=== PATIENT | male | born 1990 | race Caucasian/White ===

== ENCOUNTER 2023-08-05 14:02 | Outpatient (AMB) | payer BC, SELFPAY ==
[2023-08-05 14:30] VITALS: BP 127/58; PULSE 64; RESP 16; O2SAT 98; BMI 31.8
--- NOTE | 2023-08-05 14:30 | MHC.OFFVIS ---
Vital Signs 08/05/23 14:30 Height 5 ft 6 in Weight 197 lb BMI 31.8 BP 127/58 L Blood Pressure Location Lt brachial Position Sitting Respiration 16 Pulse 64 Pulse Source Pulse Oximeter Pulse Oximetry (%) 98 Oxygen Delivery Method Room Air Intake Visit Reasons: Back/Shoulder pain,numbness Allergies Penicillins Allergy (Unknown, Verified 08/03/23 09:39) Unknown HPI Comments Details: Papo is a very pleasant 33-year-old male who presents the office today for evaluation management of his chronic back pain. Patient endorses pain across the lower back with radiation down both legs to the feet. He also reports pain across his shoulders, mid line cervical neck pain with radiation down both arms. Endorses numbness and tingling of both hands and feet. Patient states the symptoms started after he was injured in 2011 while serving in the . Patient completed physical therapy about 4 months ago. No improvement of pain. He has done acupuncture and dry needling without improvement of his symptoms. Nonsteroidal anti-inflammatory medication, Tylenol and topical medications not effective in relieving his pain. Patient did have an MRI years ago, he was then evaluated by a neurosurgeon but deemed not surgical candidate at that time. Denies red flag symptoms including new loss of bowel, bladder or saddle anesthesia. Pain today is rated as a 5/10, constant. In terms of muscle damage condition is described as aching, spasming, stabbing, sharp, shooting, dull, numb, throbbing, tingling, pins and needles. Pain is negatively impacting patient's enjoyment of life, general activity, mood, normal work, recreational activity, relationship but people, sleeping and driving. 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 He could not tolerate sitting in a car during shifts for lengthy periods of time or wearing his duty belt. Patient also complains of headaches. He has a pending neurology appointment in 2 weeks. He has tried sumatriptan and Nurtec with minimal improvement. States he gets severe headaches 4 to 5 times a month that require him to lay in a dark room with the lights off. He endorses near daily tolerable headaches. He is not on any preventative medications for migraines. He does have a history of sleep apnea, uses CPAP at night but also has a history of PTSD and struggles with tolerating the CPAP device on his face. Patient denies alcohol or tobacco use. Endorses THC use at bedtime Denies use of anticoagulation. Denies implantable devices, pacemaker, defibrillator. [facility] Medical History (Updated 08/05/23 @ 16:52 by Judy Wang, CCU NURSE, [employer] REPA[employer]ER SUPERVISOR) Chronic headache MARCIE (obstructive sleep apnea) Kidney stone Insomnia Back pain Anxiety Review of Systems Const All systems reviewed & are unremarkable except as noted in HPI and below Physical Exam Vital Signs: Last Vital Signs Pulse 64 08/05/23 14:30 Resp 16 08/05/23 14:30 BP 127/58 L 08/05/23 14:30 Pulse Ox 98 08/05/23 14:30 Oxygen Delivery Method Room Air 08/05/23 14:30 BMI result Body Mass Index 31.8 General: awake, alert, oriented. Answers questions appropriately. Fully engaged in examination. Skin: warm, dry, intact HEENT: Normocephalic. Hearing intact. Cardiac: External chest normal in appearance. Respiratory: No cough, audible wheezing or stridor. Abdomen: without gross distension. Neurological: Oriented to person, place, time and situation. Thought process intact. No gait abnormalities appreciated. Psychiatric: Appropriate mood and affect. Good judgment and insight. Lumbar exam: Able to stand on bilateral tiptoes and bilateral heels. Able to transition from sit to stand unassisted. Ambulates with bilaterally normal heel strike and toe off Tender to palpation over bilateral lumbar musculature, midline cervical vertebrae, cervical paraspinal muscles, upper and middle trapezius Nontender to palpation over PSIS Cervical range of motion limited, pain with right and left lateral flexion and rotation. Elvey tension positive bilaterally Bilateral upper extremity strength 5/5 Bilateral lower extremity strength 5/5 DTR: intact and symmetric Negative footdrop, negative clonus Straight leg raises with dorsiflexion positive the right Facet loading positive bilaterally MARITO positive bilaterally Assessment & Plan Assessment & Plan (1) Paresthesia: Comment: bilateral hands, bilateral feet Code(s): R20.2 - Paresthesia of skin Category: Medical (2) Lumbar radiculopathy: Code(s): M54.16 - Radiculopathy, lumbar region Category: Medical (3) Chronic headache: Code(s): R51.9 - Headache, unspecified; G89.29 - Other chronic pain Category: Medical (4) Myofascial muscle pain: Comment: UPPER AND LOWER BACK Code(s): M79.18 - Myalgia, other site Category: Medical (5) Cervical radiculopathy: Code(s): M54.12 - Radiculopathy, cervical region Category: Medical Plan Papo is a very pleasant 33-year-old male who presented to the office today for evaluation management of his chronic neck and lower back pain. EMG ordered for evaluation of his reported bilateral hand and bilateral lower extremity neuropathy/paresthesia. Patient has exhausted conservative therapy including PT, acupuncture, dry needling, nonsteroidal anti-inflammatory medications, Tylenol and topical medications all without improvement of his symptoms. Discussed options for treatment including medication management, diagnostic testing, steroid injections, peripheral nerve stimulation, radiofrequency ablation and more permanent neuromodulation. Patient would like to start with medications while waiting for EMG testing and results. Tizanidine 2 mg p.o. t.i.d.. Patient advised on cautions for use. May cause drowsiness. Do not take with alcohol or other FABRICATION LEAD suppressants. Amitriptyline 10 mg p.o. q.h.s. for 2 weeks. Then may increase to 20 mg p.o. q.h.s. All questions and concerns are answered and patient agrees with the plan. Follow-up after EMG, sooner if needed. Orders: Orders NE electromyogram (EMG) Today R20.2 - Paresthesia of skin Medications: New amitriptyline one tablet daily at bedtime for first 2 weeks, then may increase to two tablets at bedtime. 20 mg (2 x 10 mg) PO BEDTIME 60 tabs 1RF tizanidine No driving while taking this medication. May cause drowsiness. Do not take with alcohol or other FABRICATION LEAD Depressants. 2 mg PO TID PRN 90 tabs 0RF muscle spasticity Coding Level of Care Code New Pt Level 4 (44696) Diagnoses Paresthesia R20.2 Lumbar radiculopathy M54.16 Chronic headache R51.9; G89.29 Myofascial muscle pain M79.18 Cervical radiculopathy M54.12
== END 2023-08-05 15:01 | disposition home or self-care (01) ==
PROVIDERS: PCP Physician Assistant Medical; Visit Provider Registered Nurse Emergency
DX: R20.2 Paresthesia of skin (principal); M54.16 Radiculopathy, lumbar region; R51.9 Headache, unspecified; G89.29 Other chronic pain; M79.18 Myalgia, other site; M54.12 Radiculopathy, cervical region
CPT/HCPCS: 99204

== ENCOUNTER → 2023-08-05 14:02 | Outpatient (BNVA) | payer BC, SELFPAY | PROVIDERS: PCP Physician Assistant Medical; Visit Provider Registered Nurse Emergency ==

== ENCOUNTER 2023-09-09 14:29 | Outpatient (REF) | payer BC, SELFPAY ==
--- NOTE | 2023-09-09 14:33 | EMG_ITS ---
Chief complaint: Lateral neck/trapezius pain radiating down to both upper extremities, with sensation of numbness/tingling and weakness. Left worse than right. Milder symptoms in lower extremities. Reason for referral: Evaluate for radiculopathy Referred by: Judy Wang NP Procedure done: Bilateral upper and lower extremity NCS/EMG Precautions and/or limitations: None The limb temperature was monitored continuously and remained between 32-36 degrees C during the performance of the NCS. Nerve Conduction Studies Anti Sensory Summary Table ?Stim Site NR Onset (ms) Norm Onset (ms) Peak (ms) Norm Peak (ms) O-P Amp (?V) Norm O-P Amp Site1 Site2 Delta-0 (ms) Dist (cm) Anders (m/s) Norm Anders (m/s) Left Median Anti Sensory (2nd Digit) Wrist ? 2.7 3.4 <3.6 61.0 >10 Wrist 2nd Digit 2.7 14.0 52 Right Median Anti Sensory (2nd Digit) Wrist ? 2.6 3.3 <3.6 37.5 >10 Wrist 2nd Digit 2.6 14.0 54 Right Radial Anti Sensory (Thumb) Forearm ? 1.5 2.0 <3.1 30.7 Forearm Thumb 1.5 0.0 Left Sural Anti Sensory (Lat Mall) Calf ? 2.6 3.2 <4.0 25.3 >5.0 Calf Lat Mall 2.6 14.0 54 Right Sural Anti Sensory (Lat Mall) Calf ? 2.7 3.3 <4.0 8.2 >5.0 Calf Lat Mall 2.7 14.0 52 Left Ulnar Anti Sensory (5th Digit) Wrist ? 2.0 2.9 <3.7 53.6 >15.0 Wrist 5th Digit 2.0 14.0 70 Right Ulnar Anti Sensory (5th Digit) Wrist ? 2.2 2.8 <3.7 18.8 >15.0 Wrist 5th Digit 2.2 14.0 64 Motor Summary Table ?Stim Site NR Onset (ms) Norm Onset (ms) O-P Amp (mV) Norm O-P Amp iAmp (mV) Amp (1st) (%) Site1 Site2 Delta-0 (ms) Dist (cm) Anders (m/s) Norm Anders (m/s) Left Median Motor (Abd Poll Brev) Wrist ? 4.5 <3.9 8.8 >4.5 10.0 100.0 Elbow Wrist 3.7 20.0 54 >45 Elbow ? 8.2 8.3 9.5 94.3 Right Median Motor (Abd Poll Brev) Wrist ? 3.9 <3.9 11.1 >4.5 12.9 100.0 Elbow Wrist 3.8 20.0 53 >45 Elbow ? 7.7 10.6 12.4 95.5 Right Peroneal Motor (Ext Dig Brev) Ankle ? 3.8 <4.0 5.5 >2.5 6.6 100.0 Ankle Ext Dig Brev 3.8 0.0 B Fib ? 10.0 5.4 6.1 98.2 B Fib Ankle 6.2 30.0 48 >40 Poplt ? 10.9 5.0 5.7 90.9 Poplt B Fib 0.9 5.0 56 >40 Left Tibial Motor (Abd Hamilton Brev) Ankle ? 4.5 <5 10.4 >2.5 14.9 100.0 Ankle Abd Hamilton Brev 4.5 0.0 Knee ? 11.9 12.8 17.3 123.1 Knee Ankle 7.4 36.0 49 >40 Right Tibial Motor (Abd Hamilton Brev) Ankle ? 4.1 <5 11.9 >2.5 16.7 100.0 Ankle Abd Hamilton Brev 4.1 0.0 Knee ? 11.7 9.4 13.3 79.0 Knee Ankle 7.6 39.0 51 >40 Left Ulnar Motor (Abd Dig Minimi) Wrist ? 2.6 <3.0 7.0 >5 9.3 100.0 B Elbow Wrist 3.2 22.0 69 >45 B Elbow ? 5.8 7.3 9.2 104.3 A Elbow B Elbow 1.7 10.0 59 >45 A Elbow ? 7.5 8.0 10.2 114.3 Right Ulnar Motor (Abd Dig Minimi) Wrist ? 2.7 <3.0 7.2 >5 8.8 100.0 B Elbow Wrist 3.4 20.0 59 >45 B Elbow ? 6.1 6.8 8.5 94.4 A Elbow B Elbow 1.2 10.0 83 >45 A Elbow ? 7.3 6.8 8.7 94.4 EMG ?Side Muscle Nerve Root Ins Act Fibs Psw Amp Dur Poly Recrt Int Pat Comment Right 1stDorInt Ulnar C8-T1 Nml Nml Nml Nml Nml 0 Nml Complete Right FlexCarRad Median C6-7 Nml Nml Nml Nml Nml 0 Nml Complete Right Biceps Musculocut C5-6 Nml Nml Nml Nml Nml 0 Nml Complete Right Triceps Radial C6-7-8 Nml Nml Nml Nml Nml 0 Nml Complete Right Deltoid Axillary C5-6 Nml Nml Nml Nml Nml 0 Nml Complete Left 1stDorInt Ulnar C8-T1 Nml Nml Nml Nml Nml 0 Nml Complete Left FlexCarRad Median C6-7 Nml Nml Nml Nml Nml 0 Nml Complete Left Biceps Musculocut C5-6 Nml Nml Nml Nml Nml 0 Nml Complete Left Triceps Radial C6-7-8 Nml Nml Nml Incr Incr 0 Nml Complete Left Deltoid Axillary C5-6 Nml Nml Nml Nml Nml 0 Nml Complete Right AbdHallucis MedPlantar S1-2 Nml Nml Nml Nml Nml 0 Nml Complete Right AntTibialis Dp Br Peron L4-5 Nml Nml Nml Nml Nml 0 Nml Complete Right PostTibialis Tibial L5, S1 Nml Nml Nml Nml Nml 0 Nml Complete Right MedGastroc Tibial S1-2 Nml Nml Nml Nml Nml 0 Nml Complete Right VastusMed Femoral L2-4 Nml Nml Nml Nml Nml 0 Nml Complete Left AbdHallucis MedPlantar S1-2 Nml Nml Nml Nml Nml 0 Nml Complete Left AntTibialis Dp Br Peron L4-5 Nml Nml Nml Nml Nml 0 Nml Complete Left PostTibialis Tibial L5, S1 Nml Nml Nml Nml Nml 0 Nml Complete Left MedGastroc Tibial S1-2 Nml Nml Nml Nml Nml 0 Nml Complete Left VastusMed Femoral L2-4 Nml Nml Nml Nml Nml 0 Nml Complete Paraspinal EMG ?Side Muscle Nerve Root Ins Act Fibs Psw Comment Right Cervical Upper Rami Nml Nml Nml Right Cervical Mid Rami Nml Nml Nml Right Cervical Lower Rami Nml Nml Nml Left Cervical Upper Rami Nml Nml Nml Left Cervical Mid Rami Nml Nml Nml Left Cervical Lower Rami Incr 1+ 1+ FINDINGS: Right median motor nerve showed prolonged distal latency, normal amplitude and normal conduction velocity. All other nerves tested were within normal. Concentric needle EMG was performed in selected muscles of the bilateral upper and lower extremities, cervical paraspinals. Study revealed signs of electric abnormalities as shown in the table above. Left triceps showed increased duration and amplitude. Left lower cervical paraspinals showed increased insertional activity, PSWs and fibrillations. IMPRESSION: 1. This is an abnormal study. 2. There is electrodiagnostic evidence for chronic left cervical radiculopathy, possibly affecting C7/C8 roots 3. There is no electrodiagnostic evidence for median neuropathy, ulnar neuropathy, brachial plexopathy, peroneal neuropathy, tibial neuropathy. lumbosacral plexopathy, lumbar radiculopathy, or peripheral neuropathy. Thank you for your kind referral. Marycruz Casper MD, SKY Board Certified, [place] Board [employer] and Rehabilitation (ABPMR) Board Certified, [place] Board of Electrodiagnostic Medicine (ABEM) CODIN [id number] x 4 MTDD
== END 2023-09-09 14:30 | disposition home or self-care (01) ==
LOC: HO.NEURO 14:29
PROVIDERS: Visit Provider Registered Nurse Emergency
DX: R20.2 Paresthesia of skin (principal)
CPT/HCPCS: 95886; 95913

== ENCOUNTER → 2023-09-09 14:33 | Outpatient (BNV) | payer BC, SELFPAY | PROVIDERS: Visit Provider Physical Medicine & Rehabilitation | DX: M54.12 Radiculopathy, cervical region (principal); R20.2 Paresthesia of skin; M54.2 Cervicalgia | CPT/HCPCS: 95886; 95913 ==

== ENCOUNTER 2023-10-22 16:47 | Outpatient (REF) | payer BC, SELFPAY ==
--- NOTE | ~2023-10-22 | CT_ITS ---
EXAMINATION: CT SINUSES without contrast CLINICAL INFORMATION: Nasal polyps, septal deviation. COMPARISON: None TECHNIQUE: Multidetector helical imaging was performed in the axial plane with generation of coronal and sagittal reformatted images. This CT examination was performed using dose optimization techniques as appropriate, variously including the following: *Automated exposure control *Adjustment of mA and/or kV according to patient size (this includes techniques or standardized protocols for targeted exams where dose is matched to indication/reason for exam; i.e. extremities or head) *Use of iterative reconstruction technique CONTRAST: Noncontrasted study. FINDINGS: MAXILLARY: Mild mucosal thickening of the lining of both right and left maxillary sinuses. Retention cyst in the floor of the right maxillary sinus measuring about 1.3 cm. OSTIOMEATAL UNITS: Mucosal thickening cause occlusion of ostiomeatal units on both sides. ETHMOIDAL AIR CELLS: Mild mucosal thickening in ethmoidal air cells, SPHENOIDAL AIR CELLS: Sphenoidal air cells are relatively spared. 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 NASAL CAVITY: Nasal cavity is normal. Mild deviation of nasal septum to the right by approximately 4 mm. SURROUNDING SOFT TISSUE: The adjacent orbits and the surrounding soft tissue is otherwise normal. FRONTAL SINUSES AND DRAINAGE PATHWAYS: Normal. ADDITIONAL RELEVANT FINDINGS: The TMJs articulate normally. The orbits and skull base soft tissues are unremarkable. The middle ear cavities and mastoid air cells are clear. Limited evaluation demonstrates no acute intracranial findings. CT/CT sinus wo IV con IMPRESSION: 1. Mild mucosal thickening of the paranasal sinuses including maxillary sinuses, ethmoidal air cells, suggesting mild chronic sinusitis. 2. 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 3. Small retention cyst in the floor of the right maxillary sinus. 4. Mild septal deviation of the nasal septum to the right.
== END 2023-10-22 16:48 | disposition home or self-care (01) ==
LOC: HO.CT 16:47
PROVIDERS: Visit Provider Otolaryngology
DX: J33.0 Polyp of nasal cavity (principal); J34.2 Deviated nasal septum
CPT/HCPCS: 70486

== ENCOUNTER 2023-12-17 10:11 | Outpatient (AMB) | payer BC, SELFPAY ==
[2023-12-17 10:18] VITALS: BP 119/70; PULSE 64; O2SAT 97; BMI 31.3
--- NOTE | 2023-12-17 10:18 | MHC.OFFVIS ---
Vital Signs 12/17/23 10:18 Height 5 ft 6 in Weight 194 lb BMI 31.3 BP 119/70 Blood Pressure Location Lt brachial Position Sitting Pulse 64 Pulse Source Pulse Oximeter Pulse Oximetry (%) 97 Oxygen Delivery Method Room Air Intake Visit Reasons: Follow Up for Back Pain Allergies Penicillins Allergy (Unknown, Verified 12/17/23 10:19) Unknown Medication List - Last Reconciled 12/17/23 by Deja Martin amitriptyline 20 mg (2 x 10 mg) PO BEDTIME lorazepam 0.5 mg PO DAILY PRN sumatriptan succinate (Imitrex) 50 mg PO Q2-4H PRN tizanidine 2 mg PO TID PRN trazodone 50 mg PO BEDTIME PRN HPI Comments Details: Patient returns back to the office today for follow-up cervical radiculopathy, review of recent MRI and EMG MRI and EMG reviewed, results as per below Patient continues with pain from his neck across shoulders and down the arms. Left side is worse than the right. Continues with numbness and tingling of the hands, left worse than right Was taking the prescribed amitriptyline and tizanidine. [place] relief with that but did not like how groggy made him felt so he has not been taking either of them recently. Patient has taken cyclobenzaprine in the past and would like to discontinue tizanidine and restart cyclobenzaprine. He is scheduled later today for MRIs of his shoulders. Denies new medications, allergies or diagnoses Prior: Papo is a very pleasant 33-year-old male who presents the office today for evaluation management of his chronic back pain. Patient endorses pain across the lower back with radiation down both legs to the feet. He also reports pain across his shoulders, mid line cervical neck pain with radiation down both arms. Endorses numbness and tingling of both hands and feet. Patient states the symptoms started after he was injured in 2011 while serving in the . Patient completed physical therapy about 4 months ago. No improvement of pain. He has done acupuncture and dry needling without improvement of his symptoms. Nonsteroidal anti-inflammatory medication, Tylenol and topical medications not effective in relieving his pain. Patient did have an MRI years ago, he was then evaluated by a neurosurgeon but deemed not surgical candidate at that time. Denies red flag symptoms including new loss of bowel, bladder or saddle anesthesia. Pain today is rated as a 5/10, constant. In terms of muscle damage condition is described as aching, spasming, stabbing, sharp, shooting, dull, numb, throbbing, tingling, pins and needles. Pain is negatively impacting patient's enjoyment of life, general activity, mood, normal work, recreational activity, relationship but people, sleeping and driving. 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 He could not tolerate sitting in a car during shifts for lengthy periods of time or wearing his duty belt. Patient also complains of headaches. He has a pending neurology appointment in 2 weeks. He has tried sumatriptan and Nurtec with minimal improvement. States he gets severe headaches 4 to 5 times a month that require him to lay in a dark room with the lights off. He endorses near daily tolerable headaches. He is not on any preventative medications for migraines. He does have a history of sleep apnea, uses CPAP at night but also has a history of PTSD and struggles with tolerating the CPAP device on his face. Patient denies alcohol or tobacco use. Endorses THC use at bedtime Denies use of anticoagulation. Denies implantable devices, pacemaker, defibrillator. [facility] Medical History (Updated 08/05/23 @ 16:52 by Judy Wang APRN, GALI) Chronic headache MARCIE (obstructive sleep apnea) Kidney stone Insomnia Back pain Anxiety Review of Systems Const All systems reviewed & are unremarkable except as noted in HPI and below Physical Exam Vital Signs: Last Vital Signs Pulse 64 12/17/23 10:18 BP 119/70 12/17/23 10:18 Pulse Ox 97 12/17/23 10:18 Oxygen Delivery Method Room Air 12/17/23 10:18 BMI result Body Mass Index 31.3 General: awake, alert, oriented. Answers questions appropriately. Fully engaged in examination. Skin: warm, dry, intact HEENT: Normocephalic. Hearing intact. Cardiac: External chest normal in appearance. Respiratory: No cough, audible wheezing or stridor. Abdomen: without gross distension. MS: No obvious swelling or deformities. Able to transition from sit to stand unassisted. Ambulates with bilaterally normal heel strike and toe off Neurological: Oriented to person, place, time and situation. Thought process intact. No gait abnormalities appreciated. Psychiatric: Appropriate mood and affect. Good judgment and insight. Results Reviewed Results Reviewed: 09/09/23 EMG IMPRESSION: 1. This is an abnormal study. 2. There is electrodiagnostic evidence for chronic left cervical radiculopathy, possibly affecting C7/C8 roots 3. There is no electrodiagnostic evidence for median neuropathy, ulnar neuropathy, brachial plexopathy, peroneal neuropathy, tibial neuropathy. lumbosacral plexopathy, lumbar radiculopathy, or peripheral neuropathy. 12/14/23 MRI cervical spine Assessment & Plan Assessment & Plan (1) Paresthesia: Comment: bilateral hands, bilateral feet Code(s): R20.2 - Paresthesia of skin Category: Medical (2) Lumbar radiculopathy: Code(s): M54.16 - Radiculopathy, lumbar region Category: Medical (3) Chronic headache: Code(s): R51.9 - Headache, unspecified; G89.29 - Other chronic pain Category: Medical (4) Myofascial muscle pain: Comment: UPPER AND LOWER BACK Code(s): M79.18 - Myalgia, other site Category: Medical (5) Cervical radiculopathy: Code(s): M54.12 - Radiculopathy, cervical region Category: Medical Plan Patient presents the office today for follow-up, review of recent MRI and EMG. He has exhausted conservative therapy including PT, acupuncture, dry needling, nonsteroidal anti-inflammatory medications, Tylenol and topical medications all without improvement of his symptoms. Discussed options for treatment including medication management, diagnostic testing, steroid injections, peripheral nerve stimulation, radiofrequency ablation and more permanent neuromodulation. He would like to continue to try to manage medically. Discontinue tizanidine, will trial cyclobenzaprine 5 mg p.o. t.i.d.. Patient advised on cautions for use. May cause drowsiness. Do not take with alcohol or other WATERPROOFING MIXER suppressants. May continue Amitriptyline 10 mg p.o. q.h.s. He was advised medications in combination probably increased the side effects including grogginess. He can try amitriptyline at bedtime without addition of other medications or he may try cyclobenzaprine at bedtime without addition of other medications. Continue with plan for shoulder MRIs as ordered by primary care provider All questions and concerns are answered and patient agrees with the plan. Follow-up after shoulder MRIs, sooner if needed. Medications: New cyclobenzaprine May cause drowsiness, no driving while taking this medications 5 mg PO TID PRN 60 tabs 0RF muscle spasm Discontinued tizanidine No driving while taking this medication. May cause drowsiness. Do not take with alcohol or other WATERPROOFING MIXER Depressants. Discontinued Reason: Doctor's Order 2 mg PO TID PRN 90 tabs 0RF muscle spasticity Coding Level of Care Code Est Pt Level 3 (39128) Complex EM visit Add On G2211 Diagnoses Paresthesia R20.2 Lumbar radiculopathy M54.16 Chronic headache R51.9; G89.29 Myofascial muscle pain M79.18 Cervical radiculopathy M54.12
== END 2023-12-17 11:04 | disposition home or self-care (01) ==
PROVIDERS: PCP Physician Assistant Medical; Visit Provider Registered Nurse Emergency
DX: R20.2 Paresthesia of skin (principal); M54.16 Radiculopathy, lumbar region; R51.9 Headache, unspecified; G89.29 Other chronic pain; M79.18 Myalgia, other site; M54.12 Radiculopathy, cervical region
CPT/HCPCS: 99213

== ENCOUNTER → 2023-12-17 10:11 | Outpatient (BNVA) | payer BC, SELFPAY | PROVIDERS: PCP Physician Assistant Medical; Visit Provider Registered Nurse Emergency ==

== ENCOUNTER 2023-12-24 11:05 | Outpatient (AMB) | payer BC, SELFPAY ==
--- NOTE | 2023-12-24 10:58 | A.OFFVIS_ITS ---
Intake Visit Reasons: FOLLOW UP Allergies Penicillins Allergy (Unknown, Verified 12/17/23 10:19) Unknown HPI Comments Details: Telephone visit completed today for follow-up, review of bilateral shoulder MRIs MRIs were reviewed, results as per below Patient has been referred to [facility] by his primary care doctor he is awaiting appointment Prior: Patient returns back to the office today for follow-up cervical radiculopathy, review of recent MRI and EMG MRI and EMG reviewed, results as per below Patient continues with pain from his neck across shoulders and down the arms. Left side is worse than the right. Continues with numbness and tingling of the hands, left worse than right Was taking the prescribed amitriptyline and tizanidine. [place] relief with that but did not like how groggy made him felt so he has not been taking either of them recently. Patient has taken cyclobenzaprine in the past and would like to discontinue tizanidine and restart cyclobenzaprine. He is scheduled later today for MRIs of his shoulders. Denies new medications, allergies or diagnoses Prior: Papo is a very pleasant 33-year-old male who presents the office today for evaluation management of his chronic back pain. Patient endorses pain across the lower back with radiation down both legs to the feet. He also reports pain across his shoulders, mid line cervical neck pain with radiation down both arms. Endorses numbness and tingling of both hands and feet. Patient states the symptoms started after he was injured in 2011 while serving in the . Patient completed physical therapy about 4 months ago. No improvement of pain. He has done acupuncture and dry needling without improvement of his symptoms. Nonsteroidal anti-inflammatory medication, Tylenol and topical medications not effective in relieving his pain. Patient did have an MRI years ago, he was then evaluated by a neurosurgeon but deemed not surgical candidate at that time. Denies red flag symptoms including new loss of bowel, bladder or saddle anesthesia. Pain today is rated as a 5/10, constant. In terms of muscle damage condition is described as aching, spasming, stabbing, sharp, shooting, dull, numb, throbbing, tingling, pins and needles. Pain is negatively impacting patient's enjoyment of life, general activity, mood, normal work, recreational activity, relationship but people, sleeping and driving. 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 He could not tolerate sitting in a car during shifts for lengthy periods of time or wearing his duty belt. Patient also complains of headaches. He has a pending neurology appointment in 2 weeks. He has tried sumatriptan and Nurtec with minimal improvement. States he gets severe headaches 4 to 5 times a month that require him to lay in a dark room with the lights off. He endorses near daily tolerable headaches. He is not on any preventative medications for migraines. He does have a history of sleep apnea, uses CPAP at night but also has a history of PTSD and struggles with tolerating the CPAP device on his face. Patient denies alcohol or tobacco use. Endorses THC use at bedtime Denies use of anticoagulation. Denies implantable devices, pacemaker, defibrillator. [facility] Medical History (Updated 08/05/23 @ 16:52 by Judy Wang, UNIQUE, ASSISTANT MERCHANDISE MANAGER) Chronic headache MARCIE (obstructive sleep apnea) Kidney stone Insomnia Back pain Anxiety Review of Systems Const All systems reviewed & are unremarkable except as noted in HPI and below Physical Exam Telephone visit only, vital signs and physical exam deferred Telehealth Telehealth Telehealth Platform: Telephone Location of provider rendering services: practice address Location of patient: address on file Patient Identification confirmed using: Name, : Yes Telehealth method: voice only Patient verbally consented to treatment: Yes Patient verbally consented to billing insurance company: Yes Patient informed of any privacy concerns related to visit: Yes Minutes spent on Phone/Video with Pt.: 11 Results Reviewed Results Reviewed: 12/17/23 MR SHOULDER WITHOUT CONTRAST LEFT FINDINGS: There is mild degenerative change and hypertrophy at the acromioclavicular joint with subchondral edema and cyst formation the distal clavicle. There is mild periarticular and synovial edema. There is mild lateral downsloping of the acromion with effacement of the adjacent subacromial space. There is mild supraspinatus tendinopathy. No tendon tear or tendon retraction or muscle atrophy. Infraspinatus and teres minor are intact. The subscapularis is intact. The long head of the biceps tendon is intact and descends normally within the bicipital groove. There is tear at the posterior superior labrum (axial series 301, images 12 and 13). There is small paralabral cyst along the posterior mid labrum measuring 6 mm. No anterior labral abnormality. There is increased signal at articular cartilage at the anterior inferior glenoid rim which may reflect moderate thickness chondral thinning/chondromalacia. There is also small subarticular cystic change at the anterior superior glenoid rim. No glenohumeral joint effusion or capsular abnormality. Normal visualized proximal humerus. Normal muscle signal is present. No soft tissue mass is identified. IMPRESSION: 1. Torn posterior labrum as indicated. 2. Mild AC joint osteoarthritis with prominent reactive edema and cystic change at the distal clavicle with synovial and periarticular edema. 3. Supraspinatus tendinopathy. Rotator cuff is intact. 12/17/23 PROCEDURE: MR RIGHT SHOULDER without CONTRAST FINDINGS: There is mild hypertrophy and increased T1 and T2 signal seen within the supraspinatus tendon compatible with tendinopathy with some intrasubstance degeneration no focal high-grade tear identified. Signal and morphology of the infraspinatus tendon is within normal limits. Signal and morphology of the subscapularis tendon is within normal limits. Signal and morphology of the teres minor tendon is within normal limits. There is no appreciable rotator cuff muscle atrophy or edema. There is a 5 mm inferior paralabral cyst with a probable inferior labral tear seen on coronal imaging. The biceps tendon is unremarkable on this non-arthrogram study. Mild to moderate AC degenerative change with anatomic impingement present. Glenohumeral joint demonstrates no appreciable degenerative change. Marrow signal is within normal limits. No edema or inflammation in the subacromial/subdeltoid bursa is identified. IMPRESSION: 1. Mild to moderate supraspinatus tendinopathy without focal tear. 2. Mild to moderate AC degenerative change with anatomic impingement. 3. Small inferior paralabral cyst with probable inferior labral tear. 09/09/23 EMG IMPRESSION: 1. This is an abnormal study. 2. There is electrodiagnostic evidence for chronic left cervical radiculopathy, possibly affecting C7/C8 roots 3. There is no electrodiagnostic evidence for median neuropathy, ulnar neuropathy, brachial plexopathy, peroneal neuropathy, tibial neuropathy. lumbosacral plexopathy, lumbar radiculopathy, or peripheral neuropathy. 12/14/23 MRI cervical spine Assessment & Plan Assessment & Plan (1) Paresthesia: Comment: bilateral hands, bilateral feet Code(s): R20.2 - Paresthesia of skin Category: Medical (2) Lumbar radiculopathy: Code(s): M54.16 - Radiculopathy, lumbar region Category: Medical (3) Chronic headache: Code(s): R51.9 - Headache, unspecified; G89.29 - Other chronic pain Category: Medical (4) Myofascial muscle pain: Comment: UPPER AND LOWER BACK Code(s): M79.18 - Myalgia, other site Category: Medical (5) Cervical radiculopathy: Code(s): M54.12 - Radiculopathy, cervical region Category: Medical Plan Telephone visit performed today for follow up, review of recent shoulder MRIs MRIs were reviewed, results as per above Follow up with [facility] as planned All questions and concerns were answered, patient agrees with the plan. Follow- up as needed Coding Level of Care Code Tele Est Pt Level 3 (92356) Complex EM visit Add On G2211 Diagnoses Paresthesia R20.2 Lumbar radiculopathy M54.16 Chronic headache R51.9; G89.29 Myofascial muscle pain M79.18 Cervical radiculopathy M54.12
== END 2023-12-24 11:06 | disposition home or self-care (01) ==
LOC: HO.PMC 11:05
PROVIDERS: PCP Physician Assistant Medical; Visit Provider Registered Nurse Emergency
DX: R20.2 Paresthesia of skin (principal); M54.16 Radiculopathy, lumbar region; R51.9 Headache, unspecified; G89.29 Other chronic pain; M79.18 Myalgia, other site; M54.12 Radiculopathy, cervical region
CPT/HCPCS: 99213

== ENCOUNTER → 2023-12-24 11:05 | Outpatient (BNVA) | payer BC, SELFPAY | PROVIDERS: PCP Physician Assistant Medical; Visit Provider Registered Nurse Emergency | DX: R20.2 Paresthesia of skin (principal); M54.16 Radiculopathy, lumbar region; R51.9 Headache, unspecified; G89.29 Other chronic pain; M79.18 Myalgia, other site; M54.12 Radiculopathy, cervical region ==

== ENCOUNTER 2024-11-09 13:26 | Outpatient (AMB) | payer BC, SELFPAY ==
[2024-11-09 13:28] VITALS: PULSE 60; RESP 16; O2SAT 97; BMI 30.7
--- NOTE | 2024-11-09 13:28 | A.OFFVIS_ITS ---
Vital Signs 3 11/09/24 13:28 Height 5 ft 6 in Weight 190 lb BMI 30.7 Blood Pressure Location Lt brachial Position Sitting Respiration 16 Pulse 60 Pulse Source Pulse Oximeter Pulse Oximetry (%) 97 Oxygen Delivery Method Room Air Intake Visit Reasons: NECK AND SHOULDER PAIN Investment Fund Manager Required: No Accompanied by: Self / Same As Patient Allergies Penicillins Allergy (Unknown, Verified 11/09/24 13:32) Unknown HPI Comments Details: The patient is a 34-year-old male presenting with right-sided neck pain and radiculopathy. A few months ago, he experienced severe back pain after lifting an object, leading to immobility for several days. He subsequently developed right upper extremity weakness and numbness, particularly in the first three fingers. The patient has been receiving physical therapy and healthcare recruiter with minimal improvement. His symptoms include intermittent pain, numbness, and tingling, exacerbated by neck movements. He has a history of a left shoulder tear, which he distinguishes from his current symptoms. An MRI showed a cervical disc bulge at C5-6, contributing to his symptoms. A steroid injection has been recommended to reduce inflammation and alleviate symptoms. - Onset: Acute onset following lifting an object quickly - Quality: Described as a pinched nerve sensation with weakness and numbness - Location: Right-sided neck and upper extremity, particularly the first three fingers - Exacerbating factors: Neck movements - Relieving factors: Physical therapy and healthcare recruiter, though with minimal effect - Affect: Pain impacts daily activities, including caring for his child - Analgesia: Considering steroid injection for pain relief - Adverse Effects: None reported from current treatments - Activities of Daily Living: Difficulty with lifting and driving due to pain - Aberrant Drug Related Behaviors: None reported [facility] Medical History (Updated 11/09/24 @ 15:41 by Judy Wang, MOTOR VEHICLE ESCORT DRIVER, AUTOMOTIVE STARTER REPAIRER) Chronic headache MARCIE (obstructive sleep apnea) Kidney stone Insomnia Back pain Anxiety Review of Systems Const Details: - Musculoskeletal: Reports right-sided neck pain and weakness, left shoulder tear - Neurological: Reports numbness and tingling in the right upper extremity, particularly the first three fingers Physical Exam Exam Exam: General: awake, alert, oriented. Answers questions appropriately. Fully engaged in examination. Skin: warm, dry, intact HEENT: Normocephalic. Hearing intact. Cardiac: External chest normal in appearance. Respiratory: No cough, audible wheezing or stridor. Abdomen: without gross distension. Neurological: Oriented to person, place, time and situation. Thought process intact. No gait abnormalities appreciated. Psychiatric: Appropriate mood and affect. Good judgment and insight. Cervical range of motion limited Elvey tension positive left Bilateral upper extremity strength 5/5 Vital Signs: Last Vital Signs Pulse 60 11/09/24 13:28 Resp 16 11/09/24 13:28 Pulse Ox 97 11/09/24 13:28 Oxygen Delivery Method Room Air 11/09/24 13:28 BMI result Body Mass Index 30.7 Results Reviewed Results Reviewed: 12/17/23 MR SHOULDER WITHOUT CONTRAST LEFT FINDINGS: There is mild degenerative change and hypertrophy at the acromioclavicular joint with subchondral edema and cyst formation the distal clavicle. There is mild periarticular and synovial edema. There is mild lateral downsloping of the acromion with effacement of the adjacent subacromial space. There is mild supraspinatus tendinopathy. No tendon tear or tendon retraction or muscle atrophy. Infraspinatus and teres minor are intact. The subscapularis is intact. The long head of the biceps tendon is intact and descends normally within the bicipital groove. There is tear at the posterior superior labrum (axial series 301, images 12 and 13). There is small paralabral cyst along the posterior mid labrum measuring 6 mm. No anterior labral abnormality. There is increased signal at articular cartilage at the anterior inferior glenoid rim which may reflect moderate thickness chondral thinning/chondromalacia. There is also small subarticular cystic change at the anterior superior glenoid rim. No glenohumeral joint effusion or capsular abnormality. Normal visualized proximal humerus. Normal muscle signal is present. No soft tissue mass is identified. IMPRESSION: 1. Torn posterior labrum as indicated. 2. Mild AC joint osteoarthritis with prominent reactive edema and cystic change at the distal clavicle with synovial and periarticular edema. 3. Supraspinatus tendinopathy. Rotator cuff is intact. 12/17/23 PROCEDURE: MR RIGHT SHOULDER without CONTRAST FINDINGS: There is mild hypertrophy and increased T1 and T2 signal seen within the supraspinatus tendon compatible with tendinopathy with some intrasubstance degeneration no focal high-grade tear identified. Signal and morphology of the infraspinatus tendon is within normal limits. Signal and morphology of the subscapularis tendon is within normal limits. Signal and morphology of the teres minor tendon is within normal limits. There is no appreciable rotator cuff muscle atrophy or edema. There is a 5 mm inferior paralabral cyst with a probable inferior labral tear seen on coronal imaging. The biceps tendon is unremarkable on this non-arthrogram study. Mild to moderate AC degenerative change with anatomic impingement present. Glenohumeral joint demonstrates no appreciable degenerative change. Marrow signal is within normal limits. No edema or inflammation in the subacromial/subdeltoid bursa is identified. IMPRESSION: 1. Mild to moderate supraspinatus tendinopathy without focal tear. 2. Mild to moderate AC degenerative change with anatomic impingement. 3. Small inferior paralabral cyst with probable inferior labral tear. 09/09/23 EMG IMPRESSION: 1. This is an abnormal study. 2. There is electrodiagnostic evidence for chronic left cervical radiculopathy, possibly affecting C7/C8 roots 3. There is no electrodiagnostic evidence for median neuropathy, ulnar neuropathy, brachial plexopathy, peroneal neuropathy, tibial neuropathy. lumbosacral plexopathy, lumbar radiculopathy, or peripheral neuropathy. 12/14/23 MRI cervical spine Assessment & Plan Assessment & Plan (1) Paresthesia: Comment: bilateral hands, bilateral feet Code(s): R20.2 - Paresthesia of skin Category: Medical (2) Chronic headache: Code(s): R51.9 - Headache, unspecified; G89.29 - Other chronic pain Category: Medical (3) Myofascial muscle pain: Code(s): M79.18 - Myalgia, other site Category: Medical (4) Cervical radiculopathy: Code(s): M54.12 - Radiculopathy, cervical region Category: Medical Plan The patient will receive a steroid injection in the neck to manage the cervical disc bulge at C5-6, targeting inflammation and pain reduction. Post-injection, continuation of physical therapy is recommended to enhance muscle strength and body mechanics. Should symptoms not improve, a surgical consultation may be necessary to discuss minimally invasive procedures for nerve decompression. I discussed with the patient the option of a steroid injection to manage the cervical disc bulge, explaining its role in reducing inflammation and pain. We reviewed the potential benefits and risks, including the possibility of needing repeated injections or surgical intervention if symptoms do not improve. I emphasized the importance of continuing physical therapy post-injection to strengthen the surrounding muscles and improve body mechanics. We also discussed the advancements in surgical techniques, highlighting minimally invasive options should surgery become necessary. The patient was informed about the procedure being performed under x-ray guidance and the follow-up process. Will schedule for fluoroscopy guided C5-6 interlaminar BRISSA with local anesthetic. Patient was informed and verbally consented to the use of an ambient scribe for clinic note documentation during this visit. Coding Level of Care Code Est Pt Level 3 (01995) Complex EM visit Add On G2211 Diagnoses Paresthesia R20.2 Chronic headache R51.9; G89.29 Myofascial muscle pain M79.18 Cervical radiculopathy M54.12
--- OUTSIDE RECORDS SUMMARY | 2024-11-09 13:51 | XMS_ITS | Continuity of Care Document ---
Author Name [facility] Organization [facility] Care Team Providers Care Flow Floor Attendant Name Role Phone [facility] Unavailable Unavailable Problems Combined list of problems from Department of Defense and Veterans Affairs facilities. It does not include entries that were removed or entered in error. Problem Status Onset Date Problem Type Date of Resolution Comments Source REFRACTIVE ERROR - HYPERMETROPIA Active Condition DoD OBESITY Active Condition DoD LOWER BACK SPRAIN Inactive Condition DoD visit for: administrative purpose Inactive Condition DoD NORMAL EXAMINATION Inactive Condition Do D WARTS COMMON Inactive Condition DoD Laboratory Studies Inactive Condition Do D late procedural complications Inactive Condition DoD UNSPECIFIED COMPLICATION OF PROCEDURE Inactive Condition DoD Corneal Opacity Active Condition DoD POSTSURGICAL STATE OF EYE AND ADNEXA Active Condition DoD Aftercare Following Surgery Of Sense Organs Inactive Condition [facility] visit for: preoperative exam Inactive Condition [facility] NORMAL ROUTINE HISTORY AND PHYSICAL ADULT (18-65) Inactive Condition DoD IMPETIGO Inactive Condition DoD ABRASION OR FRICTION BURN Inactive Condition DoD sexually active without practicing 'safer sex' Inactive Condition DoD KNEE SPRAIN RIGHT Inactive Condition DoD SCAR Active Condition [facility] visit for: follow-up exam Inactive Condition DoD SKIN ABSCESS OF THE NECK Inactive Condition [facility] visit for: postsurgical exam Active Condition [facility] Vaccines Prophylactic Need Inactive Condition DoD Need For Vaccination Typhoid Inactive Condition DoD Vaccines Prophylactic Need Against Combinations Of Diseases Inactive Condition DoD Vaccines Prophylactic Need Against Influenza Inactive Condition [facility] ASSESS PATIENT CONDITION WORK-RELATED OCCUPATIONAL DISEASE Active Condition [facility] visit for: ears / hearing exam Active Condition [facility] Patient Education - Injury Prevention Active Condition DoD ASTIGMATISM - REGULAR Active Condition DoD REFRACTIVE ERROR - MYOPIA Active Condition [facility] visit for: services physical Active Condition [facility] visit for: screening exam pulmonary tuberculosis Inactive Condition DoD Blood Typing Inactive Condition DoD Allergies, Adverse Reactions, Alerts Combined list of allergies from Department of Defense and Veterans Affairs facilities. It does not include entries that were removed or entered in error. Substance Category Reaction Severity Reaction type Status Date Reported Comments Source PENICILLINS {Cla } Drug allergy (disorder ) Anaphylaxis active 3 Nataliya [facility] Immunizations Combined list of available immunizations from the Department of Defense and Veterans Affairs facilities. Immunization Series Date Given Administered By Site Reaction Lot Number CVX Code Drug Mat Puncher Status Comments Source influenza virus vaccine, live, attenuated, for intranasal use 1 2011 [id number] Unknown (UNK) comple t ed influenza virus vaccine, live, attenuate d, for intranasa l use DoD influenza virus vaccine, live, attenuated, for intranasal use 1 2010 [id number] 111 Unknown (UNK) comple t ed influenza virus vaccine, live, attenuate d, for intranasa l use DoD hepatitis A vaccine, adult dosage 2 2010 [id number] 52 SmithKline (SKB) complet ed hepatitis A vaccine, adult dosage DoD anthrax vaccine 1 2010 [id number] [facility] ([facility]) complet ed anthrax vaccine DoD typhoid Vi capsular polysaccharid e vaccine 1 2010 [id number] Sanofi Pasteur ([facility]) complet ed typhoid Vi capsular polysacch aride vaccine DoD measles, mumps and rubella virus vaccine 1 2010 UNK 03 Unknown (UNK) Not Given measles, mumps and rubella virus vaccine DoD poliovirus vaccine, inactivated 1 2010 [id number] Sanofi Pasteur ([facility]) complet ed polioviru s vaccine, inactivat ed DoD varicella virus vaccine 1 2010 UNK 21 Unknown (UNK) Not Given varicella virus vaccine DoD hepatitis B vaccine, adult dosage 1 2010 UNK 43 Unknown (UNK) Not Given hepatitis B vaccine, adult dosage DoD hepatitis A vaccine, pediatric/ado lescent dosage, 2 dose schedule 1 2010 [id number] 83 [employer] (SKB) complet ed hepatitis A vaccine, pediatric /adolesce nt dosage, 2 dose schedule DoD influenza virus vaccine, live, attenuated, for intranasal use 1 2010 [id number] 111 Sanofi Pasteur ([facility]) complet ed influenza virus vaccine, live, attenuate d, for intranasa l use DoD meningococcal polysaccharid e (groups A, C, Y and W-135) diphtheria toxoid conjugate vaccine (MCV4P) 1 2010 [id number] 114 Sanofi Pasteur ([facility]) complet ed meningoco ccal polysacch aride (groups A, C, Y and W-135) diphtheri a toxoid conjugate vaccine (MCV4P) DoD tetanus toxoid, reduced diphtheria toxoid, and acellular pertu is vaccine, adsorbed 1 2010 [id number] 115 Sanofi Pasteur ([facility]) complet ed tetanus toxoid, reduced diphtheri a toxoid, and acellular pertussis vaccine, adsorbed DoD Encounters Combined list of: 1) Encounters from Department of Veterans Affairs facilities going backup to the last 18 months, not all VA inpatient encounters are included; 2) Encounters from the Department of Defense facilities going backup to 280 months. Location Location Details Encounter Type Encounter Number Reason For Visit Attending Provider ADM Date DC Date Status Disposition Source [facility] Ramez Jason [facility] SH[facility]NA Zambrano(IEP Optometry ) OUTPATIENT [id number] JACKI GARCIA 04/03 Released w/o Limitations [facility] Ramez Jason [facility] SHAWNA Zambrano(IEP Optomet ry) [facility] Ramez [facility] SHAWNA Zambrano(IEP Soldiers Initial Entry) OUTPATIENT [id number] CAMPOS MCCARTY 04/03 Released w/o Limitations [facility] Ramez [facility] [place] [place]ano[place] [facility] Zam[facility]ano(IEP Hearing Conservat ion Exam) OUTPATIENT [id number] JENNIFER ROE 04/04 Released w/o Limitations [facility] Ramez Jason [facility] SH[facility]NA Zambrano(IEP Hearing Conserv ation Exam) [facility] Ramez [facility] SHAWNA Zambrano(IEP [place] Initial Entry) OUTPATIENT [id number] JULY MARITA Luigi 04/05 [facility]ased [facility]/o Limitations [facility] [facility] SHAWNA Zambrano(IEP [place] Initial Entry) OUTPATIENT [id number] BROOKE JULES III 07/17 [facility]ased w/o Limitations [facility] Zam[place]Emerg ency Room) OUTPATIENT [id number] STEVE Camejo 08/18 [facility] [place] [place] OUTPATIENT [id number] F/U ER Wound care JULITO STRAUSS E 08/19 [place]ased [place]/o Limitations [place] [place]) OUTPATIENT [id number] knee injury STRAUSSJULITO E 08/20 Released w/o Limitations [place]) [place]) OUTPATIENT [id number] wound care JOÃO JOSE F 08/21 Released w/o Limitations [place]) [place]) OUTPATIENT [id number] florencia bosch JOÃO JOSE F 08/22 Released w/o Limitations [place]) [place]) OUTPATIENT [id number] florencia bosch KARONKenan JOSE F 08/23 Released w/o Limitations [place]) [place]) OUTPATIENT [id number] JULITO Villalta E 09/03 Released w/o Limitations [place]) [place](Optom etry) OUTPATIENT [id number] c/l fit/783 82/cds JULIO NI 12/17 Released w/o Limitations [place](Opt [place]metry) [place]) OUTPATIENT [id number] infecti on RUCKER , REZA A 03/18 Released w/o Limitations [place] [place]) OUTPATIENT [id number] knee pain RUCKER , REZA A 04/07 Released with Work/Duty Limitations [place]) [place]) OUTPATIENT [id number] FANI Jerez 05/22 Released w/o Limitations [facility]PATIENT [id number] follow up REZA RUCKER Kenan 06/16 Released w/o Limitations [facility]) [facility] [facility] OUTPATIENT [id number] F/U Scab on forehea d BELEN CHOPRA 07/30 Released w/o Limitations [facility]) [facility] [place]([facility] Nurse) OUTPATIENT [id number] Notes Entered by: MELANIE GARCES 28 Aug 2011 0956 ------- ------- ------- ------- -- I/P TONE GALVAN 08/27 Released w/o Limitations [facility] BASHIR Tenorio(Pending sale to [facility] Nurse) [facility] BASHIR Serra([facility] M01B Victry) OUTPATIENT [id number] JARET-KETURAH SUAREZ 09/01 Released w/o Limitations [facility] BASHIR [place]([facility] M01B Victry) [facility](Ophtha lmology Clinic) OUTPATIENT [id number] PRK Screen/ no cls ORALIA ALSTON 11/11 Released w/o Limitations [facility](Opht halmolo gy Clinic) [facility]htha [facility]mology Clinic) OUTPATIENT [id number] PRk Consult SHARONDA DICK 11/11 Released w/o Limitations [facility](Opht halmolo gy Clinic) [facility]ha [facility]mology Clinic) OUTPATIENT [id number] PRK SHARONDA DICK 11/18 Released w/o Limitations [facility](Opht halmolo gy Clinic) [facility]htha [facility]mology Clinic) OUTPATIENT [id number] Notes Entered by: SHARONDA DICK 20 Nov 2011 0657 ------- ------- ------- ------- -- PRK SHARONDA DICK 11/19 Released w/o Limitations [facility](Opht halmolo gy Clinic) [facility](Ophtha [facility]mology Clinic) OUTPATIENT [id number] 6 day pop prk Oct ORALIA ALSTON 11/25 Released w/o Limitations [facility](Opht halmolo gy Clinic) [facility]ha [facility]mology Clinic) OUTPATIENT [id number] 6 wk pop prk Oct ORALIA ALSTON 12/29 Released w/o Limitations [facility](Opht halmolo gy Clinic) [facility]ha [facility]mology Clinic) OUTPATIENT [id number] iop ck pop prk Oct ORALIA ALSTON 01/06 Released w/o Limitations [facility](Opht halmolo gy Clinic) [facility](Ophtha [facility]mology Clinic) OUTPATIENT [id number] IOP CHECK/P OP PRK Oct ORALIA ALSTON 01/13 Released w/o Limitations [facility](Opht halmolo gy Clinic) [facility](Ophtha lmology Clinic) OUTPATIENT [id number] iop ck ORALIA ALSTON 01/27 Released w/o Limitations [facility](Opht halmolo gy Clinic) Nataliya [facility] BASHIR Serra(Optome try Clinic 57) OUTPATIENT [id number] routine eye PRK oct 2011 BROWN SALAZAR 02/04 Released w/o Limitations Nataliya [facility] BASHIR Tenorio(Opto metry Clinic 57) BASHIR Hickey(Deploy ment) OUTPATIENT [id number] MAINT/L AB/HEAR ING TRACIE CHACON 02/09 Released w/o Limitations [facility]ASH[facility]key(Depl oyment) [facility]ASH[facility]key(Ophtha lmology Clinic) OUTPATIENT [id number] pop oct/IOP Check (pt will come in at 0730) ALECIA ORALIA A 02/12 Released w/o Limitations [facility]ASH[facility](Opht halallo gy Clinic) [place] [place] [place] OUTPATIENT [id number] DERM REFERRA L/TOMKI NS KETURAH PENN 07/01 Released w/o Limitations [facility] [place] OUTPATIENT [id number] f/u derm procedu re-tomk ins KETURAH PENN 07/19 Released w/o Limitations [facility] sh[place]la [place] OUTPATIENT [id number] F/U DERM KETURAH PENN 07/30 Released w/o Limitations [facility] [place] TELE CONSULT [id number] Notes Entered by: KETURAH PENN 09 Aug 2012 1326 ------- ------- ------- ------- -- Lab results a KETURAH PENN 08/09 [facility] [place]Genera l Surgery [facility] 57) OUTPATIENT [id number] YASMANI SCALES 08/25 [facility]/o Limitations [facility] [place] [place]Phys[place]am [place] 57[place] OUTPATIENT [id number] PT 1 ETS SASCHAY JAZMÍN PAULINO 08/26 [facility]ased w/o Limitations [facility] [place] [place]Opt[facility] 57[place] OUTPATIENT [id number] Notes Entered by: PROMISE ZHANG 26 Aug 2012 0822 ------- ------- ------- ------- -- ets LARIOSLOKI PONCEOBIE Grayson 08/26 Released w/o Limitations [facility] [place]Opt[place] metry [facility] 57) [place]ear[place] OUTPATIENT [id number] Notes Entered by: TRISH LOPEZ 26 Aug 2012 1039 ------- ------- ------- ------- -- CONOR Mcfarlane 08/26 Released w/o Limitations [place] ) [place]) OUTPATIENT [id number] [facility] PHASE II-TOMK INS FILI, RAY U 09/07 Released w/o Limitations [place] OUTPATIENT [id number] back pain-to demikendra PENN, RAY U 10/04 Released with Work/Duty Limitations [facility] [place] OUTPATIENT [id number] PHA PHA PCM GUSTAVOKINS TOMKINS, RAY U 12/21 Released w/o Limitations [facility] [place] [facility] OUTPATIENT [id number] NEEDS MEDPROS UPDATED NEEDS APPT PER BROWN GIL 01/03 Released w/o Limitations [facility] [place] [facility] 57[place] [facility] [place] OUTPATIENT [id number] BACK PAIN-TO KETURAH JAMESON 01/05 Released with Work/Duty Limitations Nataliya [facility] Outpatient Encounter [id number] 12/08 [facility] Procedures Combined list of: 1) Procedures from Department of Veterans Affairs facilities going back up to thelast 18 months, not all VA non-surgical procedures are included; 2) All procedures from the Department of Defense facilities. Procedure Procedure Type Code Date Perfomer Comments [facility] e IMMUNIZATION ADMINISTRATION (INCLUDES PERCUTANEOUS, INTRADERMAL, SUBCUTANEOUS, OR INTRAMUSCULAR INJECTIONS); EACH ADDITIONAL VACCINE (SINGLE OR COMBINATION VACCINE/TOXOID) 1 DoD TETANUS, DIPHTHERIA TOXOIDS AND ACELLULAR PERTUSSIS VACCINE (TDAP), WHEN ADMINISTERED TO INDIVIDUALS 7 YEARS OR OLDER, FOR INTRAMUSCULAR USE 1 DoD AUDIOMETRIC TESTING OF GROUPS 1 DoD IMMUNIZATION ADMINISTRATION (INCLUDES PERCUTANEOUS, INTRADERMAL, SUBCUTANEOUS, OR INTRAMUSCULAR INJECTIONS); 1 VACCINE (SINGLE OR COMBINATION VACCINE/TOXOID) 1 DoD SCREENING TEST OF VISUAL ACUITY, QUANTITATIVE, BILATERAL 1 DoD PRESCRIPTION OF OPTICAL AND PHYSICAL CHARACTERISTICS OF AND FITTING OF CONTACT LENS, WITH MEDICAL SUPERVISION OF ADAPTATION; CORNEAL LENS, BOTH EYES, EXCEPT FOR APHAKIA 1 DoD INCISION AND DRAINAGE OF ABSCESS (EG, CARBUNCLE, SUPPURATIVE HIDRADENITIS, CUTANEOUS OR SUBCUTANEOUS ABSCESS, CYST, FURUNCLE, OR PARONYCHIA); SIMPLE OR SINGLE 1 DoD DETERMINATION OF REFRACTIVE STATE 3 DoD SCREENING TEST OF VISUAL ACUITY, QUANTITATIVE, BILATERAL 3 DoD PURE TONE AUDIOMETRY (THRESHOLD); AIR ONLY 3 DoD COLOR VISION EXAMINATION, EXTENDED, EG, ANOMALOSCOPE OR EQUIVALENT 3 DoD DESTRUCTION (EG, LASER SURGERY, ELECTROSURGERY, CRYOSURGERY, CHEMOSURGERY, SURGICAL CURETTEMENT), OF BENIGN LESIONS OTHER THAN SKIN TAGS OR CUTANEOUS VASCULAR PROLIFERATIVE LESIONS; UP TO 14 LESIONS 3 DoD DESTRUCTION (EG, LASER SURGERY, ELECTROSURGERY, CRYOSURGERY, CHEMOSURGERY, SURGICAL CURETTEMENT), OF BENIGN LESIONS OTHER THAN SKIN TAGS OR CUTANEOUS VASCULAR PROLIFERATIVE LESIONS; UP TO 14 LESIONS 3 [facility] OPHTHALMOLOGICAL SERVICES: MEDICAL EXAMINATION AND EVALUATION WITH INITIATION OF DIAGNOSTIC AND TREATMENT PROGRAM; COMPREHENSIVE, NEW PATIENT, 1 OR MORE VISITS 2 [facility] DETERMINATION OF REFRACTIVE STATE 2 [facility] PURE TONE AUDIOMETRY (THRESHOLD); AIR ONLY 2 [facility] OPHTHALMOLOGICAL SERVICES: MEDICAL EXAMINATION AND EVALUATION, WITH INITIATION OR CONTINUATION OF DIAGNOSTIC AND TREATMENT PROGRAM; COMPREHENSIVE, ESTABLISHED PATIENT, 1 OR MORE VISITS 2 [facility] OPHTHALMOLOGICAL SERVICES: MEDICAL EXAMINATION AND EVALUATION, WITH INITIATION OR CONTINUATION OF DIAGNOSTIC AND TREATMENT PROGRAM; INTERMEDIATE, ESTABLISHED PATIENT 2 [facility] OPHTHALMOLOGICAL SERVICES: MEDICAL EXAMINATION AND EVALUATION, WITH INITIATION OR CONTINUATION OF DIAGNOSTIC AND TREATMENT PROGRAM; INTERMEDIATE, ESTABLISHED PATIENT 2 [facility] OPHTHALMOLOGICAL SERVICES: MEDICAL EXAMINATION AND EVALUATION, WITH INITIATION OR CONTINUATION OF DIAGNOSTIC AND TREATMENT PROGRAM; INTERMEDIATE, ESTABLISHED PATIENT 2 [facility] POSTOPERATIVE FOLLOW-UP VISIT, NORMALLY INCLUDED IN THE SURGICAL PACKAGE, INDICATE THAT EVALUATION & MANAGEMENT SERVICE WAS PERFORMED DURING A POSTOPERATIVE PERIOD REASON RELATED ORIGINAL PROCEDURE 2 [facility] PHOTOREFRACTIVE KERATECTOMY (PRK) 2 [facility] LASER IN SITU KERATOMILEUSIS (LASIK) 2 [facility] OPHTHALMOLOGICAL SERVICES: MEDICAL EXAMINATION AND EVALUATION, WITH INITIATION OR CONTINUATION OF DIAGNOSTIC AND TREATMENT PROGRAM; COMPREHENSIVE, ESTABLISHED PATIENT, 1 OR MORE VISITS 2 [facility] OPHTHALMOLOGICAL SERVICES: MEDICAL EXAMINATION AND EVALUATION WITH INITIATION OF DIAGNOSTIC AND TREATMENT PROGRAM; COMPREHENSIVE, NEW PATIENT, 1 OR MORE VISITS 2 [facility] Determination Of Refractive State Determination Of Refractive State 50442 3 BROWN SALAZAR [facility] Ophthalmological Prior Patient Start Comprehensive Care Ophthalmological Prior Patient Start Comprehensive Care 76692 3 BROWN SALAZAR [facility] Patient Counseling Medical Management Individual Patient Patient Counseling Medical Management Individual Patient 93290 3 KETURAH PENN [facility] Extensive Color Vision Testing Extensive Color Vision Testing 63576 3 SMITA LARIOS [facility] Tonometry Tonometry 63328 3 SMITA LARIOS [facility] Screening Test Of Visual Acuity, Quantitative, Bilateral Screening Test Of Visual Acuity, Quantitative, Bilateral 85001 3 SMITA LARIOS Threshold Audiogram (Pure Tone) Threshold Audiogram (Pure Tone) 28851 3 CONOR BARCENAS Destruction Of Benign Lesion By Cryosurgery Destruction Of Benign Lesion By Cryosurgery 02975 3 FILI RAY U DoD Destruction Of Benign Lesion By Cryosurgery Destruction Of Benign Lesion By Cryosurgery 33052 3 TOMKINS, RAY U DoD Ophthalmological Prior Patient Start Intermediate Level Care Ophthalmological Prior Patient Start Intermediate Level Care 82254 2 ORALIA ALSTON Determination Of Refractive State Determination Of Refractive State 82659 2 ORALIA ALSTON Threshold Audiogram (Pure Tone) Threshold Audiogram (Pure Tone) 96927 2 ISHAN YEE Venipuncture Venipuncture 93105 2 ISHAN YEE Ophthalmological New Patient Start Comprehensive Care Ophthalmological New Patient Start Comprehensive Care 48983 2 BROWN SALAZAR Ophthalmological Prior Patient Start Intermediate Level Care Ophthalmological Prior Patient Start Intermediate Level Care 41631 2 ORALIA ALSTON Ophthalmological Prior Patient Start Intermediate Level Care Ophthalmological Prior Patient Start Intermediate Level Care 19752 2 ORALIA ALSTON Ophthalmological Prior Patient Start Intermediate Level Care Ophthalmological Prior Patient Start Intermediate Level Care 38666 2 ORALIA ALSTON Ophthalmological Prior Patient Start Intermediate Level Care Ophthalmological Prior Patient Start Intermediate Level Care 89745 2 ORALIA ALSTON Determination Of Refractive State Determination Of Refractive State 49028 2 ORALIA ALSTON Postoperative Visit, Without Charge Postoperative Visit, Without Charge 89442 2 ORALIA ALSTON Photorefractive keratectomy (PRK) 2 SHARONDA DICK Ophthalmological Prior Patient Start Intermediate Level Care Ophthalmological Prior Patient Start Intermediate Level Care 47460 2 SHARONDA DICK Ophthalmological Prior Patient Start Comprehensive Care Ophthalmological Prior Patient Start Comprehensive Care 10141 2 SHARONDA DICK Corneal Pachymetry Both Eyes Corneal Pachymetry Both Eyes 79440 2 ORALIA ALSTON Computerized Corneal Topography Computerized Corneal Topography 70565 2 ORALIA ALSTON Determination Of Refractive State Determination Of Refractive State 20528 2 ORALIA ALSTON Ophthalmological New Patient Start Comprehensive Care Ophthalmological New Patient Start Comprehensive Care 47574 2 ORALIA ALSTON Prescription & Fitting Bilateral Corneal Lenses (Not Aphakia Prescription & Fitting Bilateral Corneal Lenses (Not Aphakia 10362 1 JULIO NI Determination Of Refractive State Determination Of Refractive State 82107 1 JULIO NI Ophthalmological New Patient Start Comprehensive Care Ophthalmological New Patient Start Comprehensive Care 39313 1 JULIO NI Incision And Drainage Of Skin Absce Incision And Drainage Of Skin Abscess 86153 1 STEVE ADAME Immunization Administration One Vaccine Immunization Administration One Vaccine 17507 1 CAMPOS MCCARTY Immunization Administration Each Additional Vaccine [address] Supervised Injection Intramuscular Supervised Injection Intramuscular 74806 1 CAMPOS MCCARTY Anthrax Vaccine, For Subcutaneous Use 1 CAMPOS MCCARTY Typhoid Vaccine Vi Capsular Polysaccharide, For Intramus Use Typhoid Vaccine Vi Capsular Polysaccharide, For Intramus Use 54867 1 CAMPOS MCCARTY Influenza Virus Vaccine Live Intranasal 28 July, MARITA Santacruz Tdap Vaccine Tdap Vaccine 96360 28 JulyMARITA Vaccines Viral Polio, Inactivated (Salk) Vaccines Viral Polio, Inactivated (Salk) 44899 28 July, MARITA Santacruz Meningococcal Conjugate Vaccine Tetravalent (A C Y W-135) 28 July MARITALUCIANO Santacruz Hep A Vac Ped/Adol Dosage (Intramusc Use) 2 Dose Schedule Hep A Vac Ped/Adol Dosage (Intramusc Use) 2 Dose Schedule 26928 1 JULY, MARITA Luigi [facility] Audiometry Group Testing Audiometry Group Testing 58701 1 JENNIFER PAZ [facility] Spectacles Services Fitting Monofocals (Not For Aphakia) Spectacles Services Fitting Monofocals (Not For Aphakia) 25664 1 SCOTT CAREY [facility] Screening Test Of Visual Acuity, Quantitative, Bilateral Screening Test Of Visual Acuity, Quantitative, Bilateral 02838 1 SCOTT CAREY [facility] Immunization Administration One Vaccine Immunization Administration One Vaccine 58456 1 CAMPOS MCCARTY Skin Test Anergy tuberculin Skin Test Anergy tuberculin 50605 1 CAMPOS MCCARTY Venipuncture Venipuncture 80309 1 CAMPOS MCCARTY Social History Combined list of available smoking, tobacco, and other social history from Department of Defense and Veterans Affairs facilities. Social History Type Response Date Comment [facility] e This section is an empty social history section. DoD
== END 2024-11-09 14:34 | disposition home or self-care (01) ==
LOC: HO.PMC 13:27
PROVIDERS: PCP Physician Assistant Medical; Visit Provider Registered Nurse Emergency
DX: R20.2 Paresthesia of skin (principal); R51.9 Headache, unspecified; G89.29 Other chronic pain; M79.18 Myalgia, other site; M54.12 Radiculopathy, cervical region
CPT/HCPCS: 99213